=== PATIENT | male | born 1990 | race Caucasian/White ===

== ENCOUNTER 2020-10-13 14:24 | Emergency (ER) | payer SELFPAY ==
[~2020-10-13] VITALS: Ht 180.3 cm; Wt 79.5 kg
[2020-10-13 14:26] VITALS: BP 144/85
== END 2020-10-13 15:19 | disposition home or self-care (01) ==
LOC: EMS 14:24
DX: Z20.822 Contact with and (suspected) exposure to COVID-19 (principal)
CPT/HCPCS: 99283; U0003

== ENCOUNTER 2020-10-14 11:18 | Emergency (ER) | payer BC ==
[~2020-10-14] VITALS: Ht 180.3 cm; Wt 86.4 kg
[2020-10-14 11:20] VITALS: BP 127/78
[2020-10-14 12:26] LABS: COVID AG,FIA SOURCE NASOPHARYNGEAL
== END 2020-10-14 18:24 | disposition home or self-care (01) ==
LOC: EMS 11:21
DX: Z20.822 Contact with and (suspected) exposure to COVID-19 (principal)
CPT/HCPCS: 99283